=== PATIENT | female | born 1935 | race Caucasian/White ===

== ENCOUNTER 2018-02-16 06:36 | Day surgery (SDC) | payer MEDICARE, BC ==
--- NOTE | 2018-02-14 09:57 | PREOPHP ---
DATE OF ADMISSION: 02/16/2018 HISTORY OF PRESENT ILLNESS: This 82-year-old patient is admitted for elective cataract surgery of th e left eye. The patient has had a multiyear progression of cataracts in both eyes with significant d ecreased vision over the past year. The patient denies prior history of eye disease or injury. Syst emic history is positive for hypertension, hypothyroid and hypercholesterolemia. ALLERGIES: PENICILLIN. CURRENT MEDICATIONS INCLUDE: 1. Edarbyclor. 2. Linzess. 3. Metoprolol. 4. Simvastatin. 5. Voltaren gel. PHYSICAL EXAMINATION: Visual acuity with best correction is 20/70 in the right eye and 20/100 in the left eye. Slit lamp examination reveals nuclear sclerotic cataracts in both eyes with the left eye being greater than the right eye. Applanation tonometry is 16 mmHg in both eyes. Examination of the retina is grossly normal, but the dense cataract obscures the vision. 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 DIAGNOSIS: Nuclear sclerotic cataract, left eye. PLAN: Cataract extraction with lens implant, left eye. The risks and alternatives to the surgery crespo ve been discussed with the patient as well as the hope for improvement of visual acuity leading to gr eater ability to perform activities of daily living. The patient understands this and agrees to proc eed with surgery. Dictated By: ANGELA LOZANO/MADYSON Conf#: [id number] DID#: [id number]
[~2018-02-16] VITALS: Ht 170.2 cm; Wt 127.3 kg
[2018-02-16] VITALS (7 sets, daily range): BP systolic 100–137; BP diastolic 48–78; PULSE 58–93; RESP 14–19; Ht 170.2 cm; Wt 127.3 kg
[2018-02-16] MEDS ORDERED: MOXIFLOXACIN 0.5% 3 ML OPH OPER SCH (07:00)
[2018-02-16] MEDS ORDERED: SOD CHLORIDE 0.9% 1,000 ML IV SCH (07:00)
[2018-02-16] MEDS ORDERED: CYCLOPENTOLATE/PHENYLEPH 2 ML OPH OPER SCH (07:00)
[2018-02-16] MEDS ORDERED: DICLOFENAC 0.1% 2.5 ML OPH OPER SCH (07:00)
[2018-02-16] MEDS ORDERED: TROPICAMIDE 1% 15 ML OPH OPER SCH (07:00)
[2018-02-16] MEDS ORDERED: METO-319 PO (07:20)
[2018-02-16] MEDS ORDERED: SIMV10TA PO (07:20)
[2018-02-16] MEDS ORDERED: FOLI-49 PO (07:21)
[2018-02-16] MEDS ORDERED: AZIL1TAB2 PO (07:21)
[2018-02-16] MEDS ORDERED: IBUP-1544 PO (07:22)
[2018-02-16] MEDS ORDERED: LINA72CA PO (07:22)
[2018-02-16] MEDS ORDERED: CYCLOPENTOLATE/PHENYLEPH 5 ML OPH XX SCH ×2 (07:30)
[2018-02-16] MEDS ORDERED: GENTAMICIN 80 MG INJ ONE (08:15)
[2018-02-16] MEDS ORDERED: CARBACHOL 0.01% 1.5 ML OPH INJ ONE (08:15)
[2018-02-16] MEDS ORDERED: CEFAZOLIN 1 GM INJ ONE (08:15)
[2018-02-16] MEDS ORDERED: EPINEPHrine 1 MG INJ ONE (08:15)
[2018-02-16] MEDS ORDERED: DEXAMETHASONE 4 MG/ML 1 ML INJ ONE (08:15)
[2018-02-16] MEDS ORDERED: LIDOCAINE 2% (SDV) 5 ML INJ ONE (08:22)
[2018-02-16] MEDS ORDERED: BUPIVACAINE 0.75%/DEXT (SPINAL) 2 ML INJ ONE (08:25)
[2018-02-16] MEDS ORDERED: hydrALAzine 20 MG INJ IV PRN (08:30)
[2018-02-16] MEDS ORDERED: LABETALOL HCL 20MG INJ IV PRN (08:30)
[2018-02-16] MEDS ORDERED: OXYCODONE/ACETAMINOPHEN (5/325) TAB PO PRN ×2 (08:30)
[2018-02-16] MEDS ORDERED: DIPHENHYDRAMINE 50 MG INJ IV PRN (08:30)
[2018-02-16] MEDS ORDERED: FENTAnyl 50 MCG/ML VIAL IV PRN ×3 (08:30)
[2018-02-16] MEDS ORDERED: IPRATROPIUM (NEB) 0.5 MG/2.5 ML AMP HHN PRN (08:30)
[2018-02-16] MEDS ORDERED: ALBUTEROL 0.083% (NEB) 2.5 MG/3 ML AMP HHN PRN (08:30)
[2018-02-16] MEDS ORDERED: MEPERIDINE 25 MG INJ IV PRN (08:30)
[2018-02-16] MEDS ORDERED: EPHEDrine SULFATE 50 MG/5 ML SYG IV PRN (08:30)
[2018-02-16] MEDS ORDERED: TRIMETHOBENZAMIDE 100 MG/ML VIAL IM PRN (08:30)
[2018-02-16] MEDS ORDERED: MIDAZOLAM 1 MG/ML 2 ML INJ IV PRN (08:30)
[2018-02-16] MEDS ORDERED: ONDANSETRON 4 MG INJ IV PRN (08:30)
[2018-02-16] MEDS ORDERED: HYDROmorphONE 1 MG/5 ML IV SYRINGE IV PRN ×3 (08:30)
--- NOTE | 2018-02-16 08:31 | PREAC ---
Date/Time of Note Date/Time of Note DATE: 02/16/18 TIME: 08:27 Anesthesia Eval and Record Evaluation Time Pre-Procedure Interview DATE: 02/16/18 TIME: 08:27 Age 82 Sex female NPO: 8 hrs Preoperative diagnosis LEFT CATARACT Planned procedure LEFT CATARACT EXTRACTION AND IOL PLACEMENT Past Medical History Past Medical History: Includes Cardio: HTN GI: Morbid obesity Surgery & Anesthesia Issues No known issue Meds Anticoagulation: No Beta Dashawn within 24 hr: Yes Reported Medications Linaclotide (Linzess) 72 Mcg Capsule, 72 MCG PO DAILY, CAP 02/16/18 Ibuprofen* (Ibuprofen*) 800 Mg Tablet, 800 MG PO TID PRN for PAIN, TAB 02/16/18 Folic Acid* (Folic Acid*) 1 Mg Tablet, 1 MG PO DAILY, TAB 02/16/18 Azilsartan-Chlorthalidone (Edarbyclor) 40-25 Mg Tablet, 1 TAB PO DAILY, TAB 02/16/18 Simvastatin* (Zocor*) 10 Mg Tablet, 10 MG PO QHS, #30 TAB 02/16/18 Metoprolol Succinate* (Toprol XL*) 50 Mg Tab.er.24h, 50 MG PO DAILY, #30 TAB 02/16/18 Current Medications Diclofenac Sodium (Voltaren 0.1%) 1 drop Q5 MIN X 3 OPER Last administered on 02/16/18at 07:38; Admin Dose 1 DROP; Start 02/16/18 at 07:00 Tropicamide (Mydriacyl 1%) 1 drop Q5 MIN X3 OPER Last administered on 02/16/18at 07:38; Admin Dose 1 DROP; Start 02/16/18 at 07:00 Moxifloxacin HCl (Vigamox) 1 drop Q5 MIN X 3 OPER Last administered on 02/16/18at 07:38; Admin Dose 1 DROP; Start 02/16/18 at 07:00 Sodium Chloride 1,000 ml @ 25 mls/hr Q24H IV Last administered on 02/16/18at 07:41; Admin Dose 25 MLS/HR; Start 02/16/18 at 07:00 Non-Formulary Medication 1 ea Q5 MIN X 3 XX Last administered on 02/16/18at 07:38; Admin Dose 1 EA; Start 02/16/18 at 07:30 Meds reviewed: Yes Allergies Coded Allergies: Penicillins (Unverified Allergy, Unknown, 02/16/18) Allergies Reviewed: Yes Labs/Studies Labs Reviewed: Reviewed by anesthesiologist test: N/A Studies: ECG (NAPD), CXR (? LA EMLARGEMENT) Pre-procedure Exam Last vitals Vital Signs Date Temp Pulse Resp B/P (MAP) Pulse Ox O2 O2 Flow FiO2 Time Delivery Rate 02/16/18 96.7 70 18 127/60 96 Room Air 06:41 (82) Airway: Adequate mouth opening, Adequate thyromental dist Mallampati: Mallampati II Teeth: Normal Lung: Normal Heart: Normal ASA Physical Status ASA physical status: 2 Emergency: None Planned Anesthetic General/MAC: MAC Planned Pain Management Local by surgeon Pre-operative Attestations Prior to commencing anesthesia and surgery, the patient was re-evaluated, there was verification of: *The patient's identity *The results of appropriate recent lab work and preoperative vital signs *The above evaluation not changing prior to induction *Anesthetic plan, risk benefits, alternative and complications discussed with patient/family; questions answered; patient/family understands, accepts and wishes to proceed. David King M.D. Feb 16, 2018 08:31
[2018-02-16] MEDS ORDERED: TETRACAINE 0.5% 4 ML OPH LEFT EYE ONE (08:35)
[2018-02-16] MEDS ORDERED: CARBACHOL 0.01% 1.5 ML OPH INJ INJ ONE (08:35)
[2018-02-16] MEDS ORDERED: PROPOFOL 20 ML ONE (08:35)
[2018-02-16] MEDS ORDERED: GENTAMICIN 80 MG INJ INJ ONE (08:35)
[2018-02-16] MEDS ORDERED: LIDOCAINE 100 MG SYRINGE ONE (08:35)
[2018-02-16] MEDS ORDERED: DEXAMETHASONE 4 MG/ML 1 ML INJ INJ ONE (08:35)
--- NOTE | 2018-02-16 09:20 | NUR ---
PACU: Received patient in pacu via gurney s/p left eye cataract ext. AAOx3 HOB @ high herbert position breathing w/ ease, denies pain, left eye dressing dry & intact, notified family that the procedure was done, will continue to monitor.
--- NOTE | 2018-02-16 09:25 | SIPON ---
Date/Time of Note Date/Time of Note DATE: 02/16/18 TIME: 09:24 Operative Report Preoperative Diagnosis nuclear sclerotic catarract os Postoperative Diagnosis same Operation/Procedure Performed cataract extraction with lens implant os Surgeon angela arriaga anesthetic assistant same Anesthesia: MAC Estimated blood loss: none Transfusion Required none Specimen none Grafts/Implants posterior chamber lens implant Complications none ANGELA ARRIAGA MD Feb 16, 2018 09:25
--- NOTE | 2018-02-16 09:32 | PAC ---
Date/Time of Note Date/Time of Note DATE: 02/16/18 TIME: 09:31 Post-Anesthesia Notes Post-Anesthesia Note Last documented vital signs Vital Signs Date Temp Pulse Resp B/P (MAP) Pulse Ox O2 O2 Flow FiO2 Time Delivery Rate 02/16/18 96.7 70 18 127/60 96 Room Air 09:31 (82) Activity: WNL Respiratory function: WNL Cardiovascular function: WNL Mental status: Baseline Pain reasonably controlled: Yes Hydration appropriate: Yes Nausea/Vomiting absent: Yes David King M.D. Feb 16, 2018 09:31
--- NOTE | 2018-02-16 09:46 | NUR ---
PACU: Transferred patient to [facility] via gurney AAOx4 HOB @ high herbert position breathing w/ ease, denies pain, left eye dressing dry & intact. Report given to DEVYN Sheppard
--- NOTE | 2018-02-16 10:25 | NUR ---
NO BLEEDING NOTED, NO PAIN AND DISCOMFORT, TOLERATING PO FLUIDS, HOME CARE INSTRUCTIONS GIVEN TO FAMILY, SEND HOME STABLE.
--- NOTE | 2018-02-16 11:36 | OPR ---
DATE OF OPERATION: 02/16/2018 PREOPERATIVE DIAGNOSIS: Nuclear sclerotic cataract, left eye. POSTOPERATIVE DIAGNOSIS: Nuclear sclerotic cataract, left eye. OPERATION PERFORMED: Cataract extraction with lens implant, left eye. SURGEON: Angela Moya MD ANESTHESIA: Dr. King. OPERATION: Phacoemulsification with posterior chamber intraocular lens implant, left eye. PROCEDURE: The patient was brought to the operating room and placed on the table with an IV in place and the patient attached to an radio/tv technician. Oxygen was given via face mask. After some intravenous sedation was administered, local anesthesia was given using Xylocaine 2% with epinephrine, mixed with Marcaine 0.5%. This was given in a lid block and retrobulbar injection. The patient was then prepped and draped in the usual sterile manner. A wire lid speculum was inserted between the lids of the left eye. A Superblade was used to enter the anterior chamber at the corneoscleral limbus at the 10:30 o'clock position. A separate incision was made using a 3.0-mm keratome which entered the corneoscleral junction at the 12 o'clock position. Through this 3-mm opening, an irrigating cystotome was introduced into the anterior chamber. The chamber was filled with Viscoat and an anterior capsulotomy was performed. Balanced salt solution was then used for hydrodissection of the lens. A phacoemulsification handpiece was then brought into the field and introduced into the anterior chamber. The lens nucleus was emulsified using a deep groove and cracking the nucleus into quadrants. Following this, each quadrant was aspirated and emulsified at the pupillary margin. After this was completed, the irrigation/aspiration handpiece was brought to the field, introduced into the posterior chamber, and the lens cortical material was removed. When this was completed, additional Viscoat was injected into the anterior and posterior chambers. The 3-mm opening had its internal lips enlarged, and then the posterior chamber intraocular lens measuring 22.0 diopters ([employer] Model LI61AO) was then injected into the posterior chamber using the lens injector system. After the leading haptic was introduced into the capsular bag and the lens optic was present in the center of the eye, the injector was removed and the trailing haptic was grasped with non-toothed forceps and introduced into the capsular fold superiorly. A Sinskey hook was then used to rotate the intraocular lens so that the lips were oriented in the horizontal meridian. One 10-0 nylon suture was placed across the wound. Prior to tying, the irrigation/aspiration handpiece was reintroduced into the anterior chamber to remove the Viscoat. Miochol was instilled to constrict the pupil, and then the 10-0 nylon suture was tied. The ends were cut short and then the knot was buried. Then, 0.5 mL of dexamethasone and 0.5 mL of gentamycin were injected into the sub-Tenon space in the inferior fornix. Ciloxan drops were then placed on the surface of the eye. The speculum was removed and a patch was applied. The patient then left the operating room in satisfactory condition. Dictated By: ANGELA LOZANO/MADYSON Conf#: [id number] DID#: [id number] MTDD
== END 2018-02-16 10:25 | disposition home or self-care (01) ==
LOC: SDS 06:36
PROVIDERS: ATTEND Ophthalmology
DX: H25.11 Age-related nuclear cataract, right eye (principal); I10 Essential (primary) hypertension; E66.01 Morbid (severe) obesity due to excess calories; Z68.41 Body mass index [BMI] 40.0-44.9, adult
CPT/HCPCS: 66984; 71045; J0171; J1100; J1580; J2001; V2632; J0690

== ENCOUNTER 2018-04-12 08:13 | Day surgery (SDC) | payer MEDICARE, BC ==
--- NOTE | 2018-04-11 12:26 | PREOPHP ---
DATE OF ADMISSION: 04/12/2018 HISTORY OF PRESENT ILLNESS: This 83-year-old patient is admitted for elective cataract surgery of th e right eye. The patient previously underwent cataract surgery of the left eye approximately 2 month s ago with good visual improvement. The patient denies prior history of eye disease or injury. SYSTEMIC HISTORY: Positive for hypertension, hypothyroid and hypercholesterolemia. ALLERGIES: THE PATIENT IS ALLERGIC TO PENICILLIN. CURRENT MEDICATIONS: Include: 1. Edarbyclor. 2. Linzess. 3. Metoprolol. 4. Simvastatin. 5. Voltaren gel. PHYSICAL EXAMINATION: The visual acuity with best correction is 20/70 in the right eye and 20/40 in the left eye. Slit lamp examination reveals a nuclear sclerotic cataract in the right eye. The left eye has a posterior chamber intraocular lens in appropriate position. Applanation tonometry is 16 m mHg in the right eye and 14 mmHg in the left eye. Examination of the retina does not show any signif icant macular degeneration. DIAGNOSIS: Nuclear sclerotic cataract, right eye. PLAN: Cataract extraction with lens implant, right eye. The risks and alternatives to the surgery h ave been discussed with the patient and patient has opted to proceed with surgery in hopes of improvi ng visual acuity leading to greater ability to perform activities of daily living. Dictated By: ANGELA LOZANO/MADYSON Conf#: [id number] DID#: [id number]
[2018-04-11 12:59] VITALS: Ht 167.6 cm; Wt 90.9 kg
[~2018-04-12] VITALS: Ht 167.6 cm; Wt 90.9 kg
[2018-04-12] VITALS (7 sets, daily range): BP systolic 99–122; BP diastolic 47–60; PULSE 60–63; RESP 8–23
[~2018-04-12 08:13] MED LIST: AZIL1TAB2 PO; FOLI-49 PO; IBUP-1544 PO; LINA72CA PO; METO-319 PO; SIMV10TA PO
--- NOTE | 2018-04-12 08:57 | PREAC ---
Date/Time of Note Date/Time of Note DATE: 04/12/18 TIME: 08:57 Anesthesia Eval and Record Evaluation Time Pre-Procedure Interview DATE: 04/12/18 TIME: 08:57 Age 83 Sex female NPO: 8 hrs Preoperative diagnosis right eye cataract Planned procedure RIGHT eye cataract extraction intraocular lens implant (pt had left cataract d one 02/16/18, received Lidocaine 30 mg and Propofol 120 mg without any issues) Past Medical History Past Medical History: Includes Cardio: HTN, Dyslipidemia, Other (right leg chronic dependent edema without hx of CHF, no HX of DVT per pt and family) Endo: Hypothyroid Neuro: Other (chronic right leg pain) Musculoskeletal: Other (s/p LEFT BKA for sarcoma, wheelchair bound now)) GI: Morbid obesity (bmi 32) Surgery & Anesthesia Issues No known issue Meds Anticoagulation: No Beta Dashawn within 24 hr: Yes (metoprolol) Reported Medications Linaclotide (Linzess) 72 Mcg Capsule, 72 MCG PO DAILY, CAP 02/16/18 Ibuprofen* (Ibuprofen*) 800 Mg Tablet, 800 MG PO TID PRN for PAIN, TAB 02/16/18 Folic Acid* (Folic Acid*) 1 Mg Tablet, 1 MG PO DAILY, TAB 02/16/18 Azilsartan-Chlorthalidone (Edarbyclor) 40-25 Mg Tablet, 1 TAB PO DAILY, TAB 02/16/18 Simvastatin* (Zocor*) 10 Mg Tablet, 10 MG PO QHS, #30 TAB 02/16/18 Metoprolol Succinate* (Toprol XL*) 50 Mg Tab.er.24h, 50 MG PO DAILY, #30 TAB 02/16/18 Current Medications Diclofenac Sodium (Voltaren 0.1%) 1 drop Q5 MIN X 3 OPER Last administered on 04/12/18at 08:40; Admin Dose 1 DROP; Start 04/12/18 at 09:00 Tropicamide (Mydriacyl 1%) 1 drop Q5 MIN X3 OPER Last administered on 04/12/18at 08:40; Admin Dose 1 DROP; Start 04/12/18 at 09:00 Moxifloxacin HCl (Vigamox) 1 drop Q5 MIN X 3 OPER Last administered on 04/12/18at 08:41; Admin Dose 1 DROP; Start 04/12/18 at 09:00 Cyclopentolate/ Phenylephrine (Cyclomydril Oph 2 ml) 1 drop Q5 MIN X 3 OPER Last administered on 04/12/18at 08:41; Admin Dose 1 DROP; Start 04/12/18 at 09:00 Sodium Chloride 1,000 ml @ 25 mls/hr Q24H IV ; Start 04/12/18 at 09:00 Meds reviewed: Yes Allergies Coded Allergies: Penicillins (Unverified Allergy, Unknown, 04/12/18) Allergies Reviewed: Yes Labs/Studies Labs Reviewed: Reviewed by anesthesiologist test: N/A Studies: ECG, CXR Pre-procedure Exam Airway: Adequate mouth opening, Adequate thyromental dist Mallampati: Mallampati II Teeth: Normal Lung: Normal Heart: Normal ASA Physical Status ASA physical status: 3 Emergency: None Planned Anesthetic General/MAC: MAC Planned Pain Management Parenteral pain med, Local by surgeon Pre-operative Attestations Prior to commencing anesthesia and surgery, the patient was re-evaluated, there was verification of: *The patient's identity *The results of appropriate recent lab work and preoperative vital signs *The above evaluation not changing prior to induction *Anesthetic plan, risk benefits, alternative and complications discussed with patient/family; questions answered; patient/family understands, accepts and wishes to proceed. SALVADOR MICHAUD Apr 12, 2018 08:57
[2018-04-12] MEDS ORDERED: DICLOFENAC 0.1% 2.5 ML OPH OPER SCH (09:00)
[2018-04-12] MEDS ORDERED: ACETAMINOPHEN 500 MG TAB PO PRN (09:00)
[2018-04-12] MEDS ORDERED: TROPICAMIDE 1% 15 ML OPH OPER SCH (09:00)
[2018-04-12] MEDS ORDERED: CYCLOPENTOLATE/PHENYLEPH 2 ML OPH OPER SCH (09:00)
[2018-04-12] MEDS ORDERED: MOXIFLOXACIN 0.5% 3 ML OPH OPER SCH (09:00)
[2018-04-12] MEDS ORDERED: SOD CHLORIDE 0.9% 1,000 ML IV SCH (09:00)
[2018-04-12] MEDS ORDERED: GENTAMICIN 80 MG INJ INJ ONE (10:17)
[2018-04-12] MEDS ORDERED: DEXAMETHASONE 4 MG/ML 1 ML INJ ONE (10:17)
[2018-04-12] MEDS ORDERED: CARBACHOL 0.01% 1.5 ML OPH INJ ONE (10:17)
[2018-04-12] MEDS ORDERED: NA HYALURONATE/CHONDROITIN 0.5 ML SYG ONE (10:17)
[2018-04-12] MEDS ORDERED: CEFAZOLIN 1 GM INJ ONE (10:17)
[2018-04-12] MEDS ORDERED: ETOMIDATE 20 MG INJ ONE (10:31)
[2018-04-12] MEDS ORDERED: LIDOCAINE 2% (SDV) 5 ML INJ ONE (11:07)
--- NOTE | 2018-04-12 11:12 | SIPON ---
Date/Time of Note Date/Time of Note DATE: 04/12/18 TIME: 11:11 Operative Report Preoperative Diagnosis nuclear sclerotic cataract od Postoperative Diagnosis same Operation/Procedure Performed cataract extraction with lens implant od Surgeon angela arriaga phlebotomy lab assistant none Anesthesia: MAC Estimated blood loss: none Transfusion Required none Specimen none Grafts/Implants posterior chamber lens implant Complications none ANGELA ARRIAGA MD Apr 12, 2018 11:12
[2018-04-12] MEDS ORDERED: HYDROmorphONE 1 MG/5 ML IV SYRINGE IV ONE (11:27)
[2018-04-12] MEDS: HYDROmorphONE 1 MG/5 ML IV SYRINGE IV PRN ×2 (11:42→11:43)
[2018-04-12] MEDS ORDERED: HYDROmorphONE 1 MG/ML SYG IV SCH (12:00)
--- NOTE | 2018-04-12 12:11 | OPR ---
DATE OF OPERATION: 04/12/2018 PREOPERATIVE DIAGNOSIS: Nuclear sclerotic cataract, right eye. POSTOPERATIVE DIAGNOSIS: Nuclear sclerotic cataract, right eye. OPERATION PERFORMED: Cataract extraction with lens implant, right eye. SURGEON: Angela Moya MD ANESTHESIA: Dr. Cannon. OPERATION: Phacoemulsification with posterior chamber intraocular lens implant, right eye. PROCEDURE: The patient was brought to the operating room and placed on the table with an IV in place and the patient attached to an barrel filler head. Oxygen was given via face mask. After some intravenous sedation was administered, local anesthesia was given using Xylocaine 2% with epinephrine, mixed with Marcaine 0.5%. This was given in a lid block and retrobulbar injection. The p atient was then prepped and draped in the usual sterile manner. A wire lid speculum was inserted between the lids of the right eye. A Superblade was used to enter th e anterior chamber at the corneoscleral limbus at the 10:30 o'clock position. A separate incision was made using a 3.0-mm keratome which entered the corneoscleral junction at the 12 o'clock position. Th rough this 3-mm opening, an irrigating cystotome was introduced into the anterior chamber. The chambe r was filled with Viscoat and an anterior capsulotomy was performed. Balanced salt solution was then used for hydrodissection of the lens. A phacoemulsification handpiece was then brought into the fiel d and introduced into the anterior chamber. The lens nucleus was emulsified using a deep groove and c racking the nucleus into quadrants. Following this, each quadrant was aspirated and emulsified at the pupillary margin. After this was completed, the irrigation/aspiration handpiece was brought to the field, introduced in to the posterior chamber, and the lens cortical material was removed. When this was completed, additi onal Viscoat was injected into the anterior and posterior chambers. The 3-mm opening had its internal lips enlarged, and then the posterior chamber intraocular lens jennifer uring 22.0 diopters ([employer] Model LI61AO) was then injected into the posterior c hamber using the lens injector system. After the leading haptic was introduced into the capsular bag and the lens optic was present in the center of the eye, the injector was removed and the trailing crespo ptic was grasped with non-toothed forceps and introduced into the capsular fold superiorly. A Sinskey hook was then used to rotate the intraocular lens so that the lips were oriented in the horizontal m eridian. One 10-0 nylon suture was placed across the wound. Prior to tying, the irrigation/aspiration handpiece was reintroduced into the anterior chamber to rem ove the Viscoat. Miochol was instilled to constrict the pupil, and then the 10-0 nylon suture was tie d. The ends were cut short and then the knot was buried. Then, 0.5 mL of dexamethasone and 0.5 mL of Ancef were injected into the sub-Tenon space in the infer ior fornix. Ciloxan drops were then placed on the surface of the eye. The speculum was removed and a patch was applied. The patient then left the operating room in satisfactory condition. Dictated By: ANGELA LOZANO/MADYSON Conf#: [id number] DID#: [id number]
== END 2018-04-12 13:06 | disposition home or self-care (01) ==
LOC: SDS 08:13
PROVIDERS: ATTEND Ophthalmology
DX: H25.11 Age-related nuclear cataract, right eye (principal); I10 Essential (primary) hypertension; E78.5 Hyperlipidemia, unspecified; E03.9 Hypothyroidism, unspecified; Z89.512 Acquired absence of left leg below knee
CPT/HCPCS: 66984; 82962; J0690; J1100; J1170; J1580; J7030; V2632